=== PATIENT | female | born 1955 | race Caucasian/White ===

== ENCOUNTER → 2016-07-18 | Outpatient (CLI) | payer BC ==
[~2016-07-18] MED LIST: ALDACTONE50 MG PO; AMBIEN 5MG TABLE5 MG PO; ASPIRIN E.C. 8181 MG PO; CALCIUM1 CAP PO; CARAFATE 1GM1 G PO; CELEBREX200 MG PO; CYMBALTA 60MG60 MG PO; DITROPAN 5MG TAB5 MG PO; EFFEXOR XR75 MG PO; ESTRACE0.1 MG/GM VG; FASTIN30 MG PO; FLAXSEED OIL1300 MG PO; MULTIVITAMIN FO1 CAP PO; PLAVIX300 MG PO; PREMARIN .3MG0.3 MG PO; PREVACID 30MG30 M1 PO; RETIN-A CR0.05 20GM TP; TOPAMAX 25MG25 M1 PO; TYLENOL 325MG325 MG PO; TYLENOL 500MG500 MG PO; VALIUM 5MG T5 MG/TAB PO
== END ==
LOC: MC.RAD 13:12
DX: Z12.31 Encounter for screening mammogram for malignant neoplasm of breast (principal); D24.2 Benign neoplasm of left breast; D24.1 Benign neoplasm of right breast; Z98.890 Other specified postprocedural states

== ENCOUNTER → 2016-09-26 | Outpatient (CLI) | payer BC ==
[~2016-09-26] VITALS: Ht 165.1 cm; Wt 108.4 kg
[2016-09-26 09:16] VITALS: BP 119/67; PULSE 91
== END ==
LOC: LIGHT
DX: E66.01 Morbid (severe) obesity due to excess calories (principal); Z68.41 Body mass index [BMI] 40.0-44.9, adult; Z71.3 Dietary counseling and surveillance; K21.9 Gastro-esophageal reflux disease without esophagitis; M15.9 Polyosteoarthritis, unspecified; F33.9 Major depressive disorder, recurrent, unspecified; E88.81 Metabolic syndrome and other insulin resistance

== ENCOUNTER → 2016-10-02 | Outpatient (CLI) | payer BC | LOC: LIGHT 10:36 | DX: Z01.818 Encounter for other preprocedural examination (principal) ==

== ENCOUNTER → 2016-10-18 | Outpatient (CLI) | payer BC ==
[~2016-10-18] VITALS: Ht 165.1 cm; Wt 105.2 kg
[2016-10-18 15:29] VITALS: BP 116/62; PULSE 125
== END ==
LOC: LIGHT 11:29
DX: G47.33 Obstructive sleep apnea (adult) (pediatric) (principal); K21.9 Gastro-esophageal reflux disease without esophagitis; E66.9 Obesity, unspecified; Z68.38 Body mass index [BMI] 38.0-38.9, adult; Z71.3 Dietary counseling and surveillance; N32.81 Overactive bladder

== ENCOUNTER → 2016-10-29 | Outpatient (CLI) | payer BC | LOC: LIGHT 09:53 | DX: E66.9 Obesity, unspecified (principal); Z68.38 Body mass index [BMI] 38.0-38.9, adult; Z71.3 Dietary counseling and surveillance ==

== ENCOUNTER → 2016-11-29 | Outpatient (CLI) | payer BC ==
[~2016-11-29] VITALS: Ht 162.6 cm; Wt 107.5 kg
[2016-11-29 13:55] VITALS: BP 124/66; PULSE 96
== END ==
LOC: LIGHT 10:22
DX: G47.33 Obstructive sleep apnea (adult) (pediatric) (principal); K21.9 Gastro-esophageal reflux disease without esophagitis; E66.01 Morbid (severe) obesity due to excess calories; Z68.41 Body mass index [BMI] 40.0-44.9, adult

== ENCOUNTER 2016-12-12 09:00 | Outpatient (RCR) | payer BC | END 2016-12-12 18:02 | LOC: WSPT 09:00 | DX: M54.2 Cervicalgia (principal); E66.01 Morbid (severe) obesity due to excess calories; R53.81 Other malaise ==

== ENCOUNTER → 2016-12-27 | Outpatient (CLI) | payer BC ==
[~2016-12-27] VITALS: Ht 162.6 cm; Wt 108.4 kg
[2016-12-27 09:51] VITALS: BP 128/78; PULSE 84
== END ==
LOC: LIGHT 09:30
DX: G47.33 Obstructive sleep apnea (adult) (pediatric) (principal); K21.9 Gastro-esophageal reflux disease without esophagitis; E66.01 Morbid (severe) obesity due to excess calories; Z68.41 Body mass index [BMI] 40.0-44.9, adult; Z71.3 Dietary counseling and surveillance; N32.81 Overactive bladder

== ENCOUNTER → 2017-01-10 | Outpatient (CLI) | payer BC | LOC: BHSO 10:14 | DX: Z01.89 Encounter for other specified special examinations (principal) ==

== ENCOUNTER → 2017-01-24 | Outpatient (CLI) | payer BC ==
[~2017-01-24] VITALS: Ht 162.6 cm; Wt 104.1 kg
[~2017-01-24] MED LIST changes: +ABILIFY5 MG PO
[2017-01-24 11:03] VITALS: BP 106/56; PULSE 80
== END ==
LOC: LIGHT 09:55
DX: G47.33 Obstructive sleep apnea (adult) (pediatric) (principal); K21.9 Gastro-esophageal reflux disease without esophagitis; E66.01 Morbid (severe) obesity due to excess calories; Z68.39 Body mass index [BMI] 39.0-39.9, adult; Z71.3 Dietary counseling and surveillance; N32.81 Overactive bladder

== ENCOUNTER → 2017-05-02 | Outpatient (CLI) | payer BC ==
[~2017-05-02] VITALS: Ht 162.6 cm; Wt 96.4 kg
[2017-05-02 12:03] VITALS: BP 118/78; PULSE 80
== END ==
LOC: LIGHT 11:11
DX: G47.33 Obstructive sleep apnea (adult) (pediatric) (principal); K21.9 Gastro-esophageal reflux disease without esophagitis; E66.01 Morbid (severe) obesity due to excess calories; Z68.36 Body mass index [BMI] 36.0-36.9, adult; Z71.3 Dietary counseling and surveillance; N32.81 Overactive bladder
CPT/HCPCS: G0463

== ENCOUNTER → 2017-06-06 | Outpatient (CLI) | payer BC ==
[~2017-06-06] VITALS: Ht 162.6 cm; Wt 93.2 kg
[~2017-06-06] MED LIST changes: +MULTIVITAMIN TP
[2017-06-06 10:30] VITALS: BP 114/60; PULSE 80
== END ==
LOC: LIGHT 09:43
DX: G47.33 Obstructive sleep apnea (adult) (pediatric) (principal); K21.9 Gastro-esophageal reflux disease without esophagitis; E66.09 Other obesity due to excess calories; Z68.35 Body mass index [BMI] 35.0-35.9, adult; Z71.3 Dietary counseling and surveillance; N32.81 Overactive bladder
CPT/HCPCS: G0463

== ENCOUNTER → 2017-07-23 | Outpatient (CLI) | payer BC | LOC: MC.RAD 09:37 | DX: Z12.31 Encounter for screening mammogram for malignant neoplasm of breast (principal) ==

== ENCOUNTER → 2018-06-13 | Outpatient (CLI) | payer BC | LOC: COL.RAD 07:34 | DX: M16.11 Unilateral primary osteoarthritis, right hip (principal) | CPT/HCPCS: J3301; Q9967 ==

== ENCOUNTER → 2018-07-30 | Outpatient (CLI) | payer BC | LOC: MC.RAD 11:08 | DX: Z12.31 Encounter for screening mammogram for malignant neoplasm of breast (principal); Z98.890 Other specified postprocedural states ==

== ENCOUNTER → 2019-02-24 | Outpatient (CLI) | payer BC | LOC: COL.RAD 08:42 | DX: M19.171 Post-traumatic osteoarthritis, right ankle and foot (principal) | CPT/HCPCS: J3301; Q9967 ==

== ENCOUNTER 2019-03-03 07:53 | Day surgery (SDC) | payer BC ==
[~2019-03-03] VITALS: Ht 162.6 cm; Wt 66.1 kg
[2019-03-03] MEDS ORDERED: D3-5050000 IU PO (08:10)
[2019-03-03] MEDS ORDERED: CYMBALTA 60MG60 MG PO (08:10)
[2019-03-03] MEDS ORDERED: DITROPAN 5MG TAB5 MG PO (08:10)
[2019-03-03] MEDS ORDERED: COLACE 100100 MG/CAP PO (08:11)
[2019-03-03] MEDS ORDERED: PRESERVISION1 SGL PO (08:11)
[2019-03-03] MEDS ORDERED: VITAMIN D3/CALCIUM (08:12)
[2019-03-03] MEDS ORDERED: MULTI VITAMINS1 TAB PO (08:13)
[2019-03-03] MEDS ORDERED: MULTIVITAMIN PATCH (08:15)
[2019-03-03] MEDS ORDERED: TYLENOL 325MG325 MG PO (08:16)
[2019-03-03] MEDS ORDERED: VALIUM 5MG T5 MG/TAB PO (08:16)
[2019-03-03] MEDS ORDERED: CARAFATE 1GM1 G PO (08:17)
[2019-03-03] MEDS ORDERED: AMBIEN 5MG TABLE5 MG PO (08:17)
[2019-03-03 08:30] VITALS: BP 110/75; PULSE 68; TEMP 97.6
--- NOTE | 2019-03-03 10:06 | NUR ---
Dr. Webb at the bedside and talks with patient's family at this time.
[2019-03-03 10:11] VITALS: BP 121/59; PULSE 88; TEMP 98
--- NOTE | 2019-03-03 10:11 | NUR ---
Patient arrives to [facility] via cart, accompanied by Endo RN Lamar. Patient is drowsy, but easily aroused to voice and oriented. She ambulates with standby assist and steady gait to chair in room. Monitoring applied - VSS and WNL on room air. She denies pain or nausea. Gag reflex intact. Offered and receives water and crackers to eat. Spouse at the bedside.
[2019-03-03 10:15] VITALS: BP 141/71; PULSE 85
--- NOTE | 2019-03-03 10:15 | NUR ---
Patient is resting comfortably in room. Tolerating PO well.
[2019-03-03 10:30] VITALS: BP 115/71; PULSE 89
[2019-03-03 10:45] VITALS: BP 104/68; PULSE 80
--- NOTE | 2019-03-03 10:45 | NUR ---
Resting comfortably in room. Denies pain, nausea, or need. VSS and WNL on room air.
--- NOTE | 2019-03-03 11:05 | NUR ---
Patient has met discharge criteria. Discharge instructions discussed, denies any questions, and verbalizes understanding. PIV removed with catheter intact and hemostasis achieved. Changes to clothing independently. Escorted to exit via wheelchair by staff. Discharged to home with ride in private vehicle at 1105.
== END 2019-03-03 11:05 | disposition home or self-care (01) ==
LOC: SDCO 07:53
DX: R10.13 Epigastric pain (principal); J45.909 Unspecified asthma, uncomplicated; Z98.84 Bariatric surgery status; Z90.49 Acquired absence of other specified parts of digestive tract; Z90.710 Acquired absence of both cervix and uterus
CPT/HCPCS: J2250; J3010; J7030

== ENCOUNTER → 2019-08-14 | Outpatient (CLI) | payer BC ==
[~2019-08-14] MED LIST changes: +COLACE 100100 MG/CAP PO; +D3-5050000 IU PO; +MULTI VITAMINS1 TAB PO; +MULTIVITAMIN PATCH; +PRESERVISION1 SGL PO; +VITAMIN D3/CALCIUM
== END ==
LOC: MC.RAD 09:13
DX: Z12.31 Encounter for screening mammogram for malignant neoplasm of breast (principal)

== ENCOUNTER → 2020-05-10 | Outpatient (CLI) | payer BC | LOC: COL.RAD 14:22 | DX: N20.2 Calculus of kidney with calculus of ureter (principal); Z98.84 Bariatric surgery status; Z90.710 Acquired absence of both cervix and uterus | CPT/HCPCS: Q9967 ==

== ENCOUNTER 2020-06-19 10:08 | Emergency (ER) | payer BC ==
[~2020-06-19] VITALS: Ht 165.1 cm; Wt 72.7 kg
[2020-06-19 10:13] VITALS: TEMP 98.2
[2020-06-19 10:28] LABS: BASO # 0.1 (0.0-0.2); BASO % 0.6 % (0.0-2.0); EOS # 0.2 (0.0-0.7); EOS % 1.9 % (0-4.0); GRAN # 5.5 (1.4-6.5); GRAN % 65.2 % (42.2-75.2); HEMATOCRIT 41.6 % (37.0-47.0); HEMOGLOBIN 14.1 g/dl (12.5-16.0); LYMPH # 2.1 (1.2-3.4); LYMPH % 24.9 % (20.0-51.0); MEAN CELL VOLUME 96 fl (80.0-100.0); MEAN CORPUSCULAR HEMOGLOBIN 33 pg (27.0-31.0); MEAN CORPUSCULAR HGB CONC 34 g/dl (33.0-37.0); MEAN PLATELET VOLUME 9.4 fl (7.4-10.4); MONO # 0.6 (0.1-0.6); MONO % 7.2 % (1.7-9.3); PLATELET COUNT 239 K/mm3 (130-400); RED BLOOD COUNT 4.33 M/mm3 (4.10-5.30); REDCELL DISTRIBUTION WIDTH-CV 12.8 % (11.5-14.5)
[2020-06-19 10:39] LABS: BILIRUBIN,TOTAL 0.7 mg/dL (0.0-1.0); CALCIUM 9.4 mg/dL (8.4-10.2); CREATININE, serum 0.63 (0.52-1.25); POTASSIUM 3.7 mmol/L (3.4-5.0); TOTAL PROTEIN 6.8 gm/dL (6.4-8.2)
[2020-06-19 10:45] LABS: COLLECTION METHOD CLEAN CATCH
[2020-06-19 10:59] LABS: MUCOUS Present /lpf; PH 8 (5-8); SQUAMOUS EPITHELIAL None Seen /hpf; URINE APPEARANCE Cloudy; URINE BACTERIA Many /hpf; URINE BILIRUBIN Negative (NEGATIVE); URINE BLOOD Negative (NEGATIVE); URINE COLOR Yellow; URINE GLUCOSE Negative (NEGATIVE); URINE KETONE Negative (NEGATIVE); URINE LEUKOCYTE ESTERASE Negative (NEGATIVE); URINE NITRATE Negative (NEGATIVE); URINE PROTEIN(semi-quant) Negative (NEGATIVE); URINE UROBILINOGEN Negative (NEGATIVE)
[2020-06-19] MEDS ORDERED: DESYREL 50MG50 MG PO (10:59)
[2020-06-19] MEDS ORDERED: TOPAMAX50 MG PO (11:00)
[2020-06-19] MEDS ORDERED: LAMICTAL XR50 MG PO (11:00)
[2020-06-19] MEDS ORDERED: ZOFRAN ODT4 MG PO (11:48)
[2020-06-19] MEDS ORDERED: ROXICODONE 55 MG/TAB PO (11:55)
[2020-06-19] MEDS ORDERED: LEVSIN0.125 M1 PO (11:55)
[2020-06-19 12:19] VITALS: BP 118/73; PULSE 84
== END 2020-06-19 12:19 | disposition home or self-care (01) ==
LOC: COL.ER 10:08
PROVIDERS: Physician Assistant
DX: R31.9 Hematuria, unspecified (principal); R10.32 Left lower quadrant pain; J45.909 Unspecified asthma, uncomplicated; G43.909 Migraine, unspecified, not intractable, without status migrainosus; G47.00 Insomnia, unspecified; F32.9 Major depressive disorder, single episode, unspecified; Z98.84 Bariatric surgery status; Z87.442 Personal history of urinary calculi; Z88.6 Allergy status to analgesic agent
CPT/HCPCS: J1885; J2270; J2405; J7030

== ENCOUNTER 2020-07-17 14:42 | Emergency (ER) | payer BC ==
[~2020-07-17] VITALS: Ht 162.6 cm; Wt 69.1 kg
[~2020-07-17 14:42] MED LIST changes: +DESYREL 50MG50 MG PO; +LAMICTAL XR50 MG PO; +LEVSIN0.125 M1 PO; +ROXICODONE 55 MG/TAB PO; +TOPAMAX50 MG PO; +ZOFRAN ODT4 MG PO
[2020-07-17 14:46] VITALS: TEMP 97.8
[2020-07-17 15:11] LABS: BASO # 0.1 (0.0-0.2); BASO % 0.5 % (0.0-2.0); EOS # 0.1 (0.0-0.7); EOS % 0.6 % (0-4.0); GRAN # 8.3 (1.4-6.5); GRAN % 73.7 % (42.2-75.2); HEMATOCRIT 45.1 % (37.0-47.0); HEMOGLOBIN 14.7 g/dl (12.5-16.0); LYMPH % 17.9 % (20.0-51.0); MEAN CELL VOLUME 99 fl (80.0-100.0); MEAN CORPUSCULAR HEMOGLOBIN 32 pg (27.0-31.0); MEAN CORPUSCULAR HGB CONC 33 g/dl (33.0-37.0); MEAN PLATELET VOLUME 9.7 fl (7.4-10.4); MONO # 0.8 (0.1-0.6); MONO % 6.9 % (1.7-9.3); PLATELET COUNT 282 K/mm3 (130-400); RED BLOOD COUNT 4.57 M/mm3 (4.10-5.30); REDCELL DISTRIBUTION WIDTH-CV 12.6 % (11.5-14.5)
[2020-07-17 15:17] LABS: ALBUMIN 4.2 gm/dL (3.5-5.0); BILIRUBIN,TOTAL 0.3 mg/dL (0.0-1.0); CALCIUM 9.3 mg/dL (8.4-10.2); CREATININE, serum 0.78 (0.52-1.25); POTASSIUM 3.9 mmol/L (3.4-5.0); TOTAL PROTEIN 7.2 gm/dL (6.4-8.2)
[2020-07-17 16:13] LABS: COLLECTION METHOD CLEAN CATCH
[2020-07-17 16:29] LABS: AMORPHOUS CRYSTAL Present /uL; PH 8 (5-8); SQUAMOUS EPITHELIAL 0-2 /hpf; URINE APPEARANCE Cloudy; URINE BACTERIA Occasional /hpf; URINE BILIRUBIN Negative (NEGATIVE); URINE BLOOD 3+ (NEGATIVE); URINE COLOR Yellow; URINE GLUCOSE Negative (NEGATIVE); URINE KETONE 1+ (NEGATIVE); URINE LEUKOCYTE ESTERASE Trace (NEGATIVE); URINE NITRATE Negative (NEGATIVE); URINE PROTEIN(semi-quant) 1+ (NEGATIVE); URINE RBC >50 /hpf; URINE UROBILINOGEN Negative (NEGATIVE)
[2020-07-17] MEDS ORDERED: CEFTIN500 MG PO (17:13)
[2020-07-17] MEDS ORDERED: ZOFRAN ODT4 MG PO (18:44)
[2020-07-17] MEDS ORDERED: ROXICODONE 55 MG/TAB PO (18:44)
[2020-07-17 19:10] VITALS: BP 110/57; PULSE 100
== END 2020-07-17 19:20 | disposition home or self-care (01) ==
LOC: COL.ER 14:42
PROVIDERS: Physician Assistant
DX: N99.89 Other postprocedural complications and disorders of genitourinary system (principal); R31.9 Hematuria, unspecified; R11.2 Nausea with vomiting, unspecified; N39.0 Urinary tract infection, site not specified; G43.909 Migraine, unspecified, not intractable, without status migrainosus; F32.9 Major depressive disorder, single episode, unspecified; Z79.891 Long term (current) use of opiate analgesic; Z87.442 Personal history of urinary calculi; Z98.84 Bariatric surgery status; Z88.6 Allergy status to analgesic agent
CPT/HCPCS: J0696; J1170; J1885; J2060; J2405; J2550; J7030

== ENCOUNTER 2020-07-19 08:19 | Observation (INO) | payer BC ==
[2020-07-19] VITALS (9 sets, daily range): BP systolic 108–138; BP diastolic 51–70; PULSE 64–75; TEMP 97.6–100
[~2020-07-19] VITALS: Ht 162.6 cm; Wt 68.8 kg
[~2020-07-19 08:19] MED LIST changes: +CEFTIN500 MG PO
[2020-07-19 09:10] LABS: COLLECTION METHOD CLEAN CATCH
[2020-07-19 09:17] LABS: PH 7 (5-8); SQUAMOUS EPITHELIAL None Seen /hpf; URINE APPEARANCE Clear; URINE BACTERIA Rare /hpf; URINE BILIRUBIN Negative (NEGATIVE); URINE BLOOD 3+ (NEGATIVE); URINE COLOR Yellow; URINE GLUCOSE Negative (NEGATIVE); URINE KETONE Negative (NEGATIVE); URINE LEUKOCYTE ESTERASE Trace (NEGATIVE); URINE NITRATE Negative (NEGATIVE); URINE PROTEIN(semi-quant) Negative (NEGATIVE); URINE RBC >50 /hpf; URINE UROBILINOGEN Negative (NEGATIVE)
--- NOTE | 2020-07-19 11:54 | NUR ---
Patient alert and oriented, answers questions appropriately. See assessment. Patient NPO since 0710 this morning. REVENUE INTEGRITY ANALYST initiated. Urine strained. Oriented with to room and visiting hours. No c/o at this time.
--- NOTE | 2020-07-19 12:00 | NUR ---
Pt is alert and oriented x3. Vital signs stable. Heart tones are present and normal, no murmur noted. Lung sounds are clear all lobes upon auscultation. No abdominal distention. Pt states experiencing nausea and vomiting for the past several days. Pt states pain in left flank area and it is "coninuous, but comes in waves". Pt had a FENCE ERECTOR started with a loading dose per provider order. No complaints at this time.
[2020-07-19] MEDS ORDERED: BENADRYL25 M2 PO (12:05)
[2020-07-19] MEDS ORDERED: ATIVAN 0.50.5 MG/TAB PO (12:08)
[2020-07-19] MEDS ORDERED: CARAFATE 1GM1 G PO (12:10)
[2020-07-19] MEDS ORDERED: IMITREX 25MG TA25 MG PO (12:11)
[2020-07-19] MEDS ORDERED: VITAMIN D31000 I1 PO (12:14)
[2020-07-19] MEDS ORDERED: B-121000 MCG PO (12:15)
[2020-07-19] MEDS ORDERED: AMBIEN 10MG10 MG PO (12:16)
--- NOTE | 2020-07-19 16:24 | NUR ---
Dr Lao here to see patient.
[2020-07-19 19:47] LABS: HEMATOCRIT 38.2 % (37.0-47.0); MEAN CELL VOLUME 101 fl (80.0-100.0); MEAN CORPUSCULAR HEMOGLOBIN 33 pg (27.0-31.0); MEAN CORPUSCULAR HGB CONC 33 g/dl (33.0-37.0); MEAN PLATELET VOLUME 9.6 fl (7.4-10.4); PLATELET COUNT 185 K/mm3 (130-400); RED BLOOD COUNT 3.79 M/mm3 (4.10-5.30); REDCELL DISTRIBUTION WIDTH-CV 12.4 % (11.5-14.5)
[2020-07-19 19:54] LABS: HEMOGLOBIN 12.6 g/dl (12.5-16.0)
[2020-07-19 20:00] LABS: CALCIUM 8.6 mg/dL (8.4-10.2); CREATININE, serum 0.99 (0.52-1.25); POTASSIUM 4.1 mmol/L (3.4-5.0)
--- NOTE | 2020-07-19 20:30 | NUR ---
Initial shift assessment done- denies pain at this time, has PROPELLANT CHARGE ZONE ASSEMBLER Morphine 1mg every 6 mg on demand- IV fluids of NS at 125cc,, temp 99.8,,labs were drawn- will call results to DR. Lao when completed,, will be NPO after MN for ? cysto tomorrow,
--- NOTE | 2020-07-19 21:00 | NUR ---
Dr. Lao notified of lab results, urine results, will continue to assess,no new orders at this time-will be NPO after MN for ? cysto in AM
[2020-07-20 00:13] VITALS: BP 97/51; PULSE 77; TEMP 98.9
[2020-07-20 04:00] VITALS: BP 122/63; PULSE 67; TEMP 98.7
--- NOTE | 2020-07-20 05:44 | NUR ---
Quiet night-- slept fair,, VSS, only used 3 mg of Morphine throughout the night for pain, Has been NPO since MN
--- NOTE | 2020-07-20 06:10 | NUR ---
States has a headache-- would like tylenol first and if that is not effective will try the imitrex-- Tylenol given
[2020-07-20 07:51] VITALS: BP 118/59; PULSE 67; TEMP 98.3
--- NOTE | 2020-07-20 08:15 | NUR ---
Pt is alert and oriented x3. Vital signs stable. Heart tones present and normal, no murmur noted. Lung sounds clear in all lobes upon auscultation. Abdomen is flat, non-distended. Pedal, posterior tibial, and radial pulses are 2+ bilaterally. Pt on MARKETING ADMINISTRATOR. Dr Lao in to see patient this am. No other complaints at this time.
[2020-07-20 08:16] VITALS: BP 118/59; PULSE 67
--- NOTE | 2020-07-20 11:19 | NUR ---
Hospice Nurse Practitioner met with patient to discuss discharge planning. Patient lives in [place] with her , Umesh (ph#[phone]) [address] sees Dr. Barros for primary care. Patient obtains medications from [facility] with no difficulties. Patient has a CPAP and no other DME. Patient reports since her gastric bypass surgery, she doesn't use her CPAP anymore. Patient is independent with ADLS. Patient reports she brought a copy of her DPOA-HC with her and provided it upon admission. Patient plans to return home with her upon discharge.
[2020-07-20 11:36] VITALS: BP 122/65; PULSE 62; TEMP 98.4
--- NOTE | 2020-07-20 12:38 | NUR ---
Pt down to surgery at 1238.
--- NOTE | 2020-07-20 12:43 | NUR ---
Pt down to surgery with surgical staff at 1238.
--- NOTE | 2020-07-20 13:02 | NUR ---
SECURITY SOLUTIONS ARCHITECT stopped at 1100 per patients request.
[2020-07-20 15:00] VITALS: BP 121/67; PULSE 71; TEMP 98.1
--- NOTE | 2020-07-20 15:00 | NUR ---
Pt returned from surgery at 1445. Pt is sitting up in bed and alert and oriented x3.
--- NOTE | 2020-07-20 17:25 | NUR ---
Pt escorted to exit by surgical staff with spouse. Pt escorted to auto/home.
== END 2020-07-20 17:25 | disposition home or self-care (01) ==
LOC: SURG 08:19
PROVIDERS: ADMIT Urology
DX: N20.2 Calculus of kidney with calculus of ureter (principal); N13.8 Other obstructive and reflux uropathy; J45.909 Unspecified asthma, uncomplicated; G43.909 Migraine, unspecified, not intractable, without status migrainosus; N32.81 Overactive bladder; F41.9 Anxiety disorder, unspecified; F32.9 Major depressive disorder, single episode, unspecified; Z90.710 Acquired absence of both cervix and uterus; Z79.891 Long term (current) use of opiate analgesic; Z79.899 Other long term (current) drug therapy; Z88.5 Allergy status to narcotic agent; Z88.8 Allergy status to other drugs, medicaments and biological substances; Z20.822 Contact with and (suspected) exposure to COVID-19; Z91.048 Other nonmedicinal substance allergy status
CPT/HCPCS: C1769; C1894; C2617; G0378; J0690; J1100; J1885; J2250; J2270; J2405; J2704; J3010; J7030; J7120; Q9967

== ENCOUNTER → 2020-08-01 | Outpatient (CLI) | payer BC ==
[~2020-08-01] MED LIST changes: +AMBIEN 10MG10 MG PO; +ATIVAN 0.50.5 MG/TAB PO; +B-121000 MCG PO; +BENADRYL25 M2 PO; +FLOMAX 0.40.4 MG/CAP PO; +IMITREX 25MG TA25 MG PO; +PERCOCET 325 MG1 TA2 PO; +VITAMIN D31000 I1 PO
== END ==
LOC: MC.RAD 09:45
DX: Z12.31 Encounter for screening mammogram for malignant neoplasm of breast (principal); Z98.890 Other specified postprocedural states

== ENCOUNTER 2021-01-10 12:29 | Emergency (ER) | payer BC ==
[~2021-01-10] VITALS: Ht 162.6 cm; Wt 66.8 kg
[~2021-01-10 12:29] MED LIST changes: -FLOMAX 0.40.4 MG/CAP PO; -PERCOCET 325 MG1 TA2 PO
[2021-01-10 12:42] VITALS: BP 111/61; TEMP 98.2
[2021-01-10 13:13] LABS: BASO % 0.5 % (0.0-2.0); EOS # 0.2 K/mm3 (0.0-0.7); EOS % 2.4 % (0-4.0); GRAN # 3.4 K/mm3 (1.4-6.5); HEMATOCRIT 42.3 % (37.0-47.0); LYMPH # 2.3 K/mm3 (1.2-3.4); LYMPH % 36.3 % (20.0-51.0); MEAN CELL VOLUME 98 fl (80.0-100.0); MEAN CORPUSCULAR HEMOGLOBIN 32 pg (27.0-31.0); MEAN CORPUSCULAR HGB CONC 33 g/dl (33.0-37.0); MEAN PLATELET VOLUME 9.7 fl (7.4-10.4); MONO # 0.4 K/mm3 (0.1-0.6); MONO % 6.5 % (1.7-9.3); PLATELET COUNT 229 K/mm3 (130-400); RED BLOOD COUNT 4.34 M/mm3 (4.10-5.30); REDCELL DISTRIBUTION WIDTH-CV 12.8 % (11.5-14.5)
[2021-01-10 13:41] LABS: ALBUMIN 3.7 gm/dL (3.4-4.8); BILIRUBIN,TOTAL 0.5 mg/dL (0.2-1.2); CREATININE, serum 0.67 mg/dL (0.57-1.11); POTASSIUM 3.9 mmol/L (3.5-4.5); TOTAL PROTEIN 6.4 gm/dL (6.2-8.1)
[2021-01-10] MEDS ORDERED: ZOFRAN ODT4 MG PO (14:51)
[2021-01-10] MEDS ORDERED: PERCOCET 325 MG1 TA2 PO (14:51)
[2021-01-10 15:00] VITALS: PULSE 61
== END 2021-01-10 14:59 | disposition home or self-care (01) ==
LOC: COL.ER 12:29
PROVIDERS: Physician Assistant
DX: N20.1 Calculus of ureter (principal); G89.29 Other chronic pain; M54.50 Low back pain, unspecified; K21.9 Gastro-esophageal reflux disease without esophagitis; G43.909 Migraine, unspecified, not intractable, without status migrainosus; Z90.710 Acquired absence of both cervix and uterus; Z98.84 Bariatric surgery status; Z88.6 Allergy status to analgesic agent; Z79.891 Long term (current) use of opiate analgesic; Z79.899 Other long term (current) drug therapy
CPT/HCPCS: J1885; J2405; J3010; J7030

== ENCOUNTER 2021-01-19 10:55 | Day surgery (SDC) | payer BC ==
[~2021-01-19] VITALS: Ht 162.6 cm; Wt 66.7 kg
[~2021-01-19 10:55] MED LIST changes: +PERCOCET 325 MG1 TA2 PO
[2021-01-19 12:08] VITALS: BP 111/46; PULSE 67; TEMP 97.8
[2021-01-19] MEDS ORDERED: TYLENOL 500MG500 MG PO (12:31)
[2021-01-19] MEDS ORDERED: FLOMAX 0.40.4 MG/CAP PO (13:23)
[2021-01-19 13:59] VITALS: BP 110/51; PULSE 96; TEMP 97.8
--- NOTE | 2021-01-19 13:59 | NUR ---
1359- PATIENT BROUGHT BACK TO [facility] VIA CART FROM PACU. YELITZA OSORIO AT BEDSIDE. PATIENT TO BE BROUGHT HOME BY . VITAL SIGNS STABLE. DENIES PAIN OR NAUSEA. IV INFUSING TO LEFT AC WITHOUT DIFFICULTY. PATIENT STATES SHE NEEDS TO USE RESTROOM. AMBULATED TO BATHROOM WITHOUT DIFFICULTY. STATES SHE IS HAVING NAUSEA AND REQUESTS ZOFRAN. PATIENT PLACED BACK ON CART ON MONITORS, WILL CONTINUE TO MONITOR. 1415- ZOFRAN ADMINISTERED PER MD ORDERS. VITAL SIGNS STABLE. WILL MONITOR. 1430- PATIENT REQUEST CRACKERS AND WATER AT THIS TIME. TOLERATING WITHOUT DIFFICULTY. WILL MONITOR. 1445- VITAL SIGNS STABLE. PATIENT REQUESTS TO USE BATHROOM. AMBULATED WITHOUT DIFFICULTY. STATES SHE FEELS READY TO GO HOME. 1500- IV REMOVED. PATIENT TO GET DRESSED AT THIS TIME. 1510- DISCHARGE INSTRUCTIONS REVIEWED WITH PATIENT AND FAMILY MEMBER. ALL QUESTIONS ANSWERED. [facility] TO DRIVE PATIENT HOME. ALL BELONGINGS IN HAND.
[2021-01-19 14:15] VITALS: BP 123/50; PULSE 92
[2021-01-19 14:30] VITALS: BP 117/53; PULSE 86
[2021-01-19 14:45] VITALS: BP 104/45; PULSE 86
== END 2021-01-19 15:10 | disposition home or self-care (01) ==
LOC: SDCO 10:55
DX: N20.2 Calculus of kidney with calculus of ureter (principal); G89.29 Other chronic pain; G43.909 Migraine, unspecified, not intractable, without status migrainosus; J45.909 Unspecified asthma, uncomplicated; F41.9 Anxiety disorder, unspecified; F32.9 Major depressive disorder, single episode, unspecified; Z20.822 Contact with and (suspected) exposure to COVID-19; Z90.710 Acquired absence of both cervix and uterus; Z79.899 Other long term (current) drug therapy; Z87.891 Personal history of nicotine dependence
CPT/HCPCS: C1769; C2617; J0690; J1100; J2405; J2704; J3010; J7120; Q9967

== ENCOUNTER → 2021-08-08 | Outpatient (CLI) | payer BC ==
[~2021-08-08] MED LIST changes: +FLOMAX 0.40.4 MG/CAP PO
== END ==
LOC: MC.RAD 11:02
DX: Z12.31 Encounter for screening mammogram for malignant neoplasm of breast (principal)